=== PATIENT | female | born 1990 | race African-American/Black ===

== ENCOUNTER → 2017-01-29 | Outpatient (CLI) | payer MEDICAID | LOC: HPND 09:56 | PROVIDERS: ATTEND Obstetrics & Gynecology | DX: O35.8XX0 Maternal care for other (suspected) fetal abnormality and damage, not applicable or unspecified (principal) | CPT/HCPCS: 76811 ==

== ENCOUNTER → 2017-03-13 | Outpatient (CLI) | payer MEDICAID | LOC: HPND 07:52 | PROVIDERS: ATTEND Obstetrics & Gynecology | DX: O35.8XX0 Maternal care for other (suspected) fetal abnormality and damage, not applicable or unspecified (principal) | CPT/HCPCS: 76816 ==